=== PATIENT | male | born 1960 | race Two or more races ===

== ENCOUNTER 2017-06-23 17:00 | Emergency (ER) | payer SELFPAY ==
[2017-06-23 17:12] VITALS: BP 154/107
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
[2017-06-23 18:57] LABS: ABSOLUTE BASOPHILS # (AUTO) 0.1 10^3/uL (0.0-0.2); ABSOLUTE EOSINOPHILS # (AUTO) 0.3 10^3/uL (0.0-0.6); ABSOLUTE LYMPHOCYTES (AUTO) 1.7 10^3/uL (0.5-4.7); ABSOLUTE MONOCYTES (AUTO) 0.6 10^3/uL (0.1-1.4); ABSOLUTE NEUT (AUTO) 6.3 10^3/uL (1.7-8.2); BASOPHILS % (AUTO) 1.2 % (0-2); EOSINOPHILS % (AUTO) 3.9 % (0-6); HEMATOCRIT 45.3 % (37.9-51.0); HEMOGLOBIN 15.7 g/dL (13.5-17.0); HGB HCT DIFFERENCE 1.8; LYMPHOCYTES % (AUTO) 18.5 % (13-45); MEAN CORPUSCULAR HGB CONC 34.7 g/dL (32.0-36.0); MEAN CORPUSCULAR VOLUME 87 fl (80-97); MONOCYTES % (AUTO) 6.5 % (3-13); RED BLOOD COUNT 5.22 10^6/uL (4.35-5.55); RED CELL DISTRIBUTION WIDTH 12.8 % (11.5-14.0); SEGMENTED NEUTROPHILS % (AUTO) 69.9 % (42-78)
[2017-06-23 19:06] LABS: BILIRUBIN,URINE NEGATIVE (NEGATIVE); CALCIUM OXALATE CRYSTALS,URINE FEW /HPF; GLUCOSE, URINE NEGATIVE (NEGATIVE); KETONES,URINE NEGATIVE (NEGATIVE); LEUKOCYTE ESTERASE,URINE NEGATIVE (NEGATIVE); NITRITE,URINE NEGATIVE (NEGATIVE); PROTEIN,URINE NEGATIVE (NEGATIVE); URINE SPECIFIC GRAVITY 1.019; UROBILINOGEN,URINE NEGATIVE mg/dL (<2.0)
[2017-06-23 19:07] LABS: APPEARANCE,URINE CLEAR
[2017-06-23 19:15] LABS: ALANINE AMINOTRANSFERASE 42 U/L (21-72); ALBUMIN 4.7 g/dL (3.5-5.0); ALKALINE PHOSPHATASE 49 U/L (38-126); ANION GAP 15 (5-19); ASPARTATE AMINO TRANSFERASE 37 U/L (17-59); BILIRUBIN,DIRECT 0.3 mg/dL (0.0-0.4); BILIRUBIN,TOTAL 0.7 mg/dL (0.2-1.3); BLOOD UREA NITROGEN 15 mg/dL (7-20); CALCIUM 9.9 mg/dL (8.4-10.2); CARBON DIOXIDE 27 mmol/L (22-30); CHLORIDE 100 mmol/L (98-107); CREATININE RESULT 0.81 mg/dL (0.52-1.25); GLUCOSE 83 mg/dL (75-110); SODIUM 142.2 mmol/L (137-145); TOTAL PROTEIN 7.7 g/dL (6.3-8.2)
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
--- NOTE | 2017-06-23 21:29 | RADIOLOGY REPORT (SQ) ---
EXAM DESCRIPTION: CT HEAD WITHOUT COMPLETED DATE/TIME: 06/23/2017 8:57 pm REASON FOR STUDY: ongoing headache, blurred vision in right eye COMPARISON: None. TECHNIQUE: Axial images acquired through the brain without intravenous contrast. Images reviewed wi th bone, brain and subdural windows. Images stored on PACS. All CT scanners at this facility use dose modulation, iterative reconstruction, and/or weight based d osing when appropriate to reduce radiation dose to as low as reasonably achievable (ALARA). [facility]: Dose Right [facility]: CareDose [facility]: Dose Right [facility]: Teradose 4D [facility]: [employer] RADIATION DOSE: Up-to-date CT equipment and radiation dose reduction techniques were employed. CTDIv ol: 49.0 mGy. DLP: 783 mGy-cm. mGy. LIMITATIONS: None. FINDINGS: VENTRICLES: Normal size and contour. CEREBRUM: No masses. No hemorrhage. No midline shift. No evidence for acute infarction. Normal gra y/white matter differentiation. No areas of low density in the white matter. CEREBELLUM: No masses. No hemorrhage. No alteration of density. No evidence for acute infarction. EXTRAAXIAL SPACES: No fluid collections. No masses. ORBITS AND GLOBE: No intra- or extraconal masses. Normal contour of globe without masses. What is p resumed represent a surgical device is identified surrounding the globe on the right. CALVARIUM: No fracture. PARANASAL SINUSES: There is opacification of the right maxillary antra and several of the ethmoidal a ir cells. Mucosal thickening is identified in the left frontal sinus. SOFT TISSUES: No mass or hematoma. OTHER: No other significant finding. IMPRESSION: No significant intracranial abnormalities were identified. Sinus disease as noted above . Other findings as noted above EVIDENCE OF ACUTE STROKE: NO. COMMENT: Quality ID # [id number]: Final reports with documentation of one or more dose reduction techniques (e.g., Automated exposure control, adjustment of the mA and/or kV according to patient size, use of iterative reconstruction technique) TECHNICAL DOCUMENTATION: JOB ID: [id number] [employer]- All Rights Reserved
[2017-06-23] MEDS ORDERED: KETOROLAC TROMETHAMINE 60 MG/2 ML SDV IM ONE (21:52)
[2017-06-23] MEDS ORDERED: ONDANSETRON 4 MG TAB.RAPDIS PO ONE (21:53)
[2017-06-23] MEDS ORDERED: HYDROXYZINE PAMOATE 50 MG CAPSULE PO ONE (22:52)
[2017-06-23] MEDS ORDERED: AMOXICILLIN TRIHYDRATE 500 MG CAPSULE PO ONE (22:52)
== END 2017-06-23 23:16 | disposition home or self-care (01) ==
LOC: ER 17:00
DX: R51 Headache (principal); J32.9 Chronic sinusitis, unspecified; H53.8 Other visual disturbances; R35.0 Frequency of micturition; I10 Essential (primary) hypertension; Z87.891 Personal history of nicotine dependence; R09.81 Nasal congestion
CPT/HCPCS: 99284; 36415; 85025; 80053; 81001; 70450; J1885; S0119

== ENCOUNTER 2017-07-18 03:16 | Emergency (ER) | payer SELFPAY ==
[2017-07-18] MEDS ORDERED: HYDROCORTISONE 1% OINTMENT 28.35 GM TP ONE (04:15)
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
[2017-07-18] MEDS ORDERED: HYDROCORTISONE 1% OINTMENT 28.35 GM ONE (04:45)
[2017-07-18 05:11] VITALS: BP 137/100
== END 2017-07-18 05:00 | disposition home or self-care (01) ==
LOC: ER 03:16
DX: L30.9 Dermatitis, unspecified (principal); R20.0 Anesthesia of skin
CPT/HCPCS: 99282; J3490

== ENCOUNTER 2017-07-25 23:17 | Emergency (ER) | payer SELFPAY ==
[2017-07-25] MEDS ORDERED: HALOPERIDOL LACTATE INJ 5 MG/1 ML VIAL IM ONE (23:56)
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
[2017-07-25] MEDS ORDERED: LORAZEPAM INJ 2 MG/1 ML VIAL IM ONE (23:57)
[2017-07-25] MEDS ORDERED: DIPHENHYDRAMINE HCL 50 MG/ML VIAL IM ONE (23:57)
[2017-07-26 00:26] LABS: ABSOLUTE BASOPHILS # (AUTO) 0.1 10^3/uL (0.0-0.2); ABSOLUTE EOSINOPHILS # (AUTO) 0.3 10^3/uL (0.0-0.6); ABSOLUTE LYMPHOCYTES (AUTO) 1.9 10^3/uL (0.5-4.7); ABSOLUTE MONOCYTES (AUTO) 0.5 10^3/uL (0.1-1.4); ABSOLUTE NEUT (AUTO) 4.3 10^3/uL (1.7-8.2); BASOPHILS % (AUTO) 1.5 % (0-2); EOSINOPHILS % (AUTO) 3.7 % (0-6); HEMATOCRIT 41.7 % (37.9-51.0); HEMOGLOBIN 14.5 g/dL (13.5-17.0); HGB HCT DIFFERENCE 1.8; LYMPHOCYTES % (AUTO) 27.5 % (13-45); MEAN CORPUSCULAR HGB CONC 34.7 g/dL (32.0-36.0); MEAN CORPUSCULAR VOLUME 86 fl (80-97); MONOCYTES % (AUTO) 7.1 % (3-13); RED BLOOD COUNT 4.83 10^6/uL (4.35-5.55); RED CELL DISTRIBUTION WIDTH 13.2 % (11.5-14.0); SEGMENTED NEUTROPHILS % (AUTO) 60.2 % (42-78); WHITE BLOOD COUNT 7.1 10^3/uL (4.0-10.5)
[2017-07-26 00:43] LABS: APPEARANCE,URINE CLEAR; BILIRUBIN,URINE NEGATIVE (NEGATIVE); GLUCOSE, URINE NEGATIVE (NEGATIVE); KETONES,URINE NEGATIVE (NEGATIVE); LEUKOCYTE ESTERASE,URINE NEGATIVE (NEGATIVE); NITRITE,URINE NEGATIVE (NEGATIVE); PROTEIN,URINE NEGATIVE (NEGATIVE); URINE SPECIFIC GRAVITY 1.015; UROBILINOGEN,URINE NEGATIVE mg/dL (<2.0)
[2017-07-26 00:59] LABS: ALANINE AMINOTRANSFERASE 42 U/L (21-72); ALBUMIN 4.3 g/dL (3.5-5.0); ALKALINE PHOSPHATASE 49 U/L (38-126); ANION GAP 12 (5-19); ASPARTATE AMINO TRANSFERASE 46 U/L (17-59); BILIRUBIN,DIRECT 0.4 mg/dL (0.0-0.4); BILIRUBIN,TOTAL 0.7 mg/dL (0.2-1.3); BLOOD UREA NITROGEN 12 mg/dL (7-20); CALCIUM 9.4 mg/dL (8.4-10.2); CARBON DIOXIDE 28 mmol/L (22-30); CHLORIDE 104 mmol/L (98-107); CREATININE RESULT 0.88 mg/dL (0.52-1.25); GLUCOSE 88 mg/dL (75-110); POTASSIUM 3.5 mmol/L (3.6-5.0); SODIUM 143.7 mmol/L (137-145); TOTAL PROTEIN 7.1 g/dL (6.3-8.2)
[2017-07-26 01:01] LABS: ALCOHOL < 10 mg/dL (NONE DETECTED)
[2017-07-26 01:10] LABS: URINE BARBITURATES SCREEN NEGATIVE; URINE METHADONE SCREEN NEGATIVE; URINE OPIATES LOW NEGATIVE; URINE PHENCYCLIDINE SCREEN NEGATIVE
--- NOTE | 2017-07-26 07:49 | EKG REPORT ---
SEVERITY:- ABNORMAL ECG - SINUS RHYTHM INCOMPLETE RBBB AND LAFB POOR R PROGRESSION PRECORDIAL LEADS, LEAD PLACEMENT ERROR VS OLD ANTERIOR IN, CLINICAL CORRELATION NE EDED. : Confirmed by: Yazan Watts MD 26-Jul-2017 07:48:34
--- NOTE | 2017-07-26 09:47 | ER Document Report ---
Doctor's Note Notes: 07/26/17 09:47 Patient has been seen and evaluated resting comfortably no acute distress. Laboratory values previous provider note and vital signs have been evaluated. Patient otherwise looks to be stable for disposition/transfer.
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
[2017-07-26 13:22] VITALS: BP 155/90
== END 2017-07-26 14:44 | disposition home or self-care (01) ==
LOC: ER 23:17
DX: F30.2 Manic episode, severe with psychotic symptoms (principal); I10 Essential (primary) hypertension
CPT/HCPCS: 93005; 99285; 96372; 36415; 80307 ×4; 85025; 80053; 81001; 93010; J1200; J1630; J2060